=== PATIENT | female | born 1990 ===

== ENCOUNTER 2021-06-02 05:28 | Inpatient (IN) | payer OTHER ==
[~2021-06-02] VITALS: Ht 162.6 cm; Wt 77.0 kg
[2021-06-02 05:58] VITALS: BP 119/78
[2021-06-02] MEDS ORDERED: METOCLOPRAMIDE 5 MG/ML, 2ML IV ONE (06:00)
[2021-06-02] MEDS ORDERED: SODIUM CITRATE/CITRIC ACID 30 ML UDC PO ONE (06:00)
[2021-06-02] MEDS ORDERED: PLEASE ENTER ALLERGIES MC SCH (06:00)
[2021-06-02] MEDS ORDERED: LACTATED RINGERS 1,000 ML IVBOLUS ONE (06:00)
[2021-06-02 06:15] LABS: BASOPHILS % (AUTO) 0 % (0-1); EOSINOPHILS % (AUTO) 2 % (1-7); LYMPHOCYTES % (AUTO) 20 % (22-44); MEAN CORPUSCULAR HEMOGLOBIN 32.3 pg (27.0-34.8); MEAN CORPUSCULAR HGB CONC 34.2 g/dL (32.4-35.8); MEAN PLATELET VOLUME 9.1 fL (7.4-10.4); MONOCYTES % (AUTO) 8 % (2-9); NEUTROPHILS % (AUTO) 71 % (42-75); PLATELET COUNT 187 x10^3/uL (130-400); RED BLOOD COUNT 4.61 x10^6/uL (3.82-5.3); RED CELL DISTRIBUTION WIDTH 14.3 % (9.6-15.2)
[2021-06-02] MEDS ORDERED: SODIUM CITRATE/CITRIC ACID 15 ML UDC ONE (06:44)
[2021-06-02] MEDS ORDERED: OXYTOCIN 30U/ 0.9% NaCL 500ML 500 ML ONE (06:45)
[2021-06-02] MEDS ORDERED: NEWBORN KIT ONE (06:47)
[2021-06-02] MEDS ORDERED: PHENYLEPHRINE 10 MG/ML ONE (07:09)
[2021-06-02] MEDS ORDERED: CEFAZOLIN 1,000 MG ONE (07:09)
[2021-06-02] MEDS ORDERED: OXYTOCIN 10 UNITS/ML, 1ML ONE (07:09)
[2021-06-02] MEDS ORDERED: EPHEDRINE 50 MG/ML, 1ML ONE (07:09)
[2021-06-02] MEDS ORDERED: FENTANYL PF 100 MCG/2ML ONE (07:09)
[2021-06-02] MEDS ORDERED: KETOROLAC 30 MG/1 ML ONE (07:09)
[2021-06-02] MEDS ORDERED: ONDANSETRON 2MG/ML, 2ML ONE (07:09)
[2021-06-02] MEDS ORDERED: DEXAMETHASONE 4 MG/ML, 1ML ONE (07:09)
[2021-06-02] MEDS ORDERED: MIDAZOLAM 1 MG/ML, 2ML IV PRN (07:30)
[2021-06-02] MEDS ORDERED: OXYcodone 5 MG/5 ML ORAL.SOL UDC PO PRN (07:30)
[2021-06-02] MEDS ORDERED: HYDROcodone/APAP 7.5-325MG/15ML UDC PO PRN (07:30)
[2021-06-02] MEDS ORDERED: hydrALAzine 20 MG/ML, 1ML IV PRN (07:30)
[2021-06-02] MEDS ORDERED: HYDROmorphone 2 MG/ML, 1ML IVPush PRN (07:30)
[2021-06-02] MEDS ORDERED: ALBUTEROL SULFATE 2.5 MG/3 ML NPPB PRN (07:30)
[2021-06-02] MEDS ORDERED: PROMETHAZINE 25 MG/ML, 1ML IV PRN (07:30)
[2021-06-02] MEDS ORDERED: EPHEDRINE 50 MG/ML, 1ML IVPush PRN (07:30)
[2021-06-02] MEDS ORDERED: METOPROLOL 1 MG/ML, 5ML IV PRN (07:30)
[2021-06-02] MEDS ORDERED: LABETALOL 5MG/ML, 20ML IV PRN (07:30)
[2021-06-02] MEDS ORDERED: ONDANSETRON 2MG/ML, 2ML IVPush PRN (07:30)
[2021-06-02] MEDS ORDERED: MEPERIDINE/PF 25MG/0.5ML IVPush PRN (07:30)
[2021-06-02] MEDS ORDERED: FENTANYL PF 100 MCG/2ML IV PRN (07:30)
[2021-06-02] MEDS ORDERED: HYDROmorphone 2 MG/ML, 1ML ONE (08:30)
[2021-06-02] MEDS ORDERED: METHYLERGONOVINE 0.2 MG/ML IM PRN (09:30)
[2021-06-02] MEDS ORDERED: morphine SULFATE 10 MG/ML, 1ML IM PRN (09:30)
[2021-06-02] MEDS ORDERED: MISOPROSTOL 200 MCG TABLET PR PRN (09:30)
[2021-06-02] MEDS ORDERED: ONDANSETRON 2MG/ML, 2ML IV PRN (09:30)
[2021-06-02] MEDS: LACTATED RINGERS 1,000 ML IV SCH ×4 (09:30→19:26)
[2021-06-02] MEDS ORDERED: OXYcodone/APAP 5/325MG TABLET PO PRN (09:30)
[2021-06-02] MEDS: OXYTOCIN 30U/ 0.9% NaCL 500ML 500 ML IV SCH ×2 (09:31→19:26)
[2021-06-02] MEDS ORDERED: PREN1TAB60 PO (10:38)
[2021-06-02 11:10] VITALS: BP 126/74
[2021-06-02] MEDS: KETOROLAC 30 MG/1 ML IV SCH ×2 (14:18→20:21)
[2021-06-02] MEDS: OXYcodone/APAP 5/325MG TABLET PO PRN ×3 (14:22→23:53)
[2021-06-02 14:29] VITALS: BP 127/75
[2021-06-02 16:26] LABS: MEAN CORPUSCULAR HEMOGLOBIN 31.5 pg (27.0-34.8); MEAN CORPUSCULAR HGB CONC 33.9 g/dL (32.4-35.8); MEAN PLATELET VOLUME 9.1 fL (7.4-10.4); PLATELET COUNT 186 x10^3/uL (130-400); RED BLOOD COUNT 4.17 x10^6/uL (3.82-5.3); RED CELL DISTRIBUTION WIDTH 14.1 % (9.6-15.2)
[2021-06-02 17:13] LABS: BAND#(MANUAL) 0.51 x10^3/uL; BANDS%(MANUAL) 3 % (0-7); LYMPH#(MANUAL) 0.51 x10^3/uL (1-3.4); LYMPHS% (MANUAL) 3 % (22-44); METAMYELOCYTES# (MANUAL) 0.17 x10^3/uL (0-0); METAMYELOCYTES% (MANUAL) 1 % (0-1); MONOS#(MANUAL) 0.17 x10^3/uL (0.3-2.7); MONOS% (MANUAL) 1 % (2-9); SEG#(MANUAL) 15.73 x10^3/uL (1.8-6.8); SEGS% (MANUAL) 92 % (42-75)
[2021-06-02 17:14] LABS: <PLATELET ESTIMATE> ADEQUATE; <PLT MORPHOLOGY> NORMAL PLT MORPH; <RBC MORPHOLOGY> NORMAL; PMNS WITH VACUOLES 1+
[2021-06-02 19:47] VITALS: BP 131/79
[2021-06-02] MEDS: DOCUSATE 100 MG CAPSULE PO PRN (19:47)
[2021-06-03 00:02] VITALS: BP 119/74
[2021-06-03] MEDS: SIMETHICONE 80 MG CHEW TAB PO PRN ×3 (00:14→14:48)
[2021-06-03] MEDS: LACTATED RINGERS 1,000 ML IV SCH ×5 (01:04→17:30)
[2021-06-03] MEDS: KETOROLAC 30 MG/1 ML IV SCH ×4 (02:37→20:38)
[2021-06-03] MEDS: OXYcodone/APAP 5/325MG TABLET PO PRN ×4 (04:16→20:38)
[2021-06-03 04:22] VITALS: BP 123/74
[2021-06-03] MEDS: OXYTOCIN 30U/ 0.9% NaCL 500ML 500 ML IV SCH ×2 (05:30→15:30)
[2021-06-03 08:30] VITALS: BP 115/75
[2021-06-03] MEDS: DOCUSATE 100 MG CAPSULE PO PRN ×2 (08:40→20:38)
[2021-06-03] MEDS: PRENATAL VIT/IRON/FA 1 EACH TABLET PO SCH (08:43)
[2021-06-03 19:45] VITALS: BP 128/84
[2021-06-04] MEDS: OXYcodone/APAP 5/325MG TABLET PO PRN ×3 (00:44→12:29)
[2021-06-04] MEDS: LACTATED RINGERS 1,000 ML IV SCH ×2 (01:30)
[2021-06-04] MEDS: OXYTOCIN 30U/ 0.9% NaCL 500ML 500 ML IV SCH (01:30)
[2021-06-04] MEDS: KETOROLAC 30 MG/1 ML IV SCH ×2 (02:27→08:43)
[2021-06-04 07:15] VITALS: BP 119/74
[2021-06-04] MEDS ORDERED: KETOROLAC 30 MG/1 ML ONE (08:38)
[2021-06-04] MEDS: DOCUSATE 100 MG CAPSULE PO PRN (08:43)
[2021-06-04] MEDS: PRENATAL VIT/IRON/FA 1 EACH TABLET PO SCH (08:43)
[2021-06-04] MEDS ORDERED: IBUPROFEN 600 MG TABLET PO PRN (09:30)
[2021-06-04] MEDS ORDERED: IBUP-1222 PO (13:46)
[2021-06-04] MEDS ORDERED: OXYC1TAB12 PO (13:46)
[2021-06-04] MEDS ORDERED: DOCU-131 PO (13:46)
== END 2021-06-04 15:05 | disposition home or self-care (01) | DRG 743 ==
LOC: LDIP 05:28 → EDSTATUS 07:30 → 2NW 10:55
PROVIDERS: ADMIT Obstetrics & Gynecology; ATTEND Obstetrics & Gynecology
PROC: 0UT70ZZ Resection of Bilateral Fallopian Tubes, Open Approach (ICD-10-PCS; principal; 2021-06-02)
PROC: 0UT20ZZ Resection of Bilateral Ovaries, Open Approach (ICD-10-PCS; 2021-06-02)
DX: Z30.2 Encounter for sterilization (principal); Z20.822 Contact with and (suspected) exposure to COVID-19
CPT/HCPCS: 36415; 85025; 86592; 86850; 86900; 87635; 88302; G0378; J0690; J1100; J1170; J1885; J2405; J3010; J2270; J2370; J2590; J2765; J7120